=== PATIENT | female | born 1945 | race American Indian/Alaskan Native ===

== ENCOUNTER 2018-04-19 04:10 | Emergency (ER) | payer MEDICARE ==
--- NOTE | 2018-04-19 04:45 | C.PDOC ---
History Of Present Illness 72y/o female whose past medical history includes hypertension, pancreatic cysts, and kidney cancer, presents to the ED for evaluation of muscle spasms for one day. Patient states the spasms are located on her left and right side, mid back, and she feels like her entire back goes into spasm every time she moves. She reports history of similar symptoms around six months ago, and states she was given Oxycontin for the pain by her PMD. Patient is visiting [place] to see her son and had an appointment with pancreatic specialist while here. Patient reports her PMD is in [place], and is returning home today. She denies fever, chills, recent trauma/injuries, SOB, chest pain, headache, dizziness, neck pain, saddle anesthesia, bowel/bladder incontinence, numbness, weakness, paresthesia, abdominal pain, N/V, cough, or any other associated complaints. Time Seen by Provider: 04/19/18 04:31 Chief Complaint (Nursing): Back Pain History Per: Patient History/Exam Limitations: no limitations Onset/Duration Of Symptoms: Hrs Current Symptoms Are (Timing): Still Present Quality Of Discomfort: "Pain" Past Medical History Reviewed: Historical Data, Nursing Documentation, Vital Signs Vital Signs: Last Vital Signs Temp 97.6 F 04/19/18 04:19 Pulse 54 L 04/19/18 04:19 Resp 20 04/19/18 04:19 BP 138/79 04/19/18 04:19 Pulse Ox 96 04/19/18 04:19 - Medical History PMH: HTN Surgical History: No Surg Hx Family History: States: Unknown Family Hx - Social History Hx Alcohol Use: No Hx Substance Use: No Review Of Systems Constitutional: Negative for: Fever, Chills Eyes: Negative for: Vision Change ENT: Negative for: Nose Congestion, Throat Pain Cardiovascular: Negative for: Chest Pain, Palpitations, Light Headedness Respiratory: Negative for: Cough, Shortness of Breath Gastrointestinal: Negative for: Nausea, Vomiting, Abdominal Pain, Diarrhea, Constipation Genitourinary: Negative for: Dysuria, Frequency, Vaginal Discharge, Vaginal Bleeding Musculoskeletal: Positive for: Back Pain, Other (left-sided muscle spasms, atraumatic ) Skin: Negative for: Rash, Bruising Neurological: Negative for: Weakness, Numbness, Altered Mental Status, Headache, Dizziness Physical Exam - Physical Exam Appears: Well, Non-toxic, No Acute Distress Skin: Normal Color, Warm, Dry Head: Atraumatic, Normacephalic Eye(s): bilateral: Normal Inspection, PERRL, EOMI Nose: Normal Oral Mucosa: Moist Neck: Normal ROM, No Midline Cervical Tenderness, No Paracervical Tenderness, Supple Chest: Symmetrical, No Deformity, No Tenderness Cardiovascular: Rhythm Regular, No Murmur Respiratory: Normal Breath Sounds, No Rales, No Rhonchi, No Wheezing Gastrointestinal/Abdominal: Soft, No Tenderness Back: Normal Inspection, No CVA Tenderness, No Vertebral Tenderness, No Decreased ROM, Muscle Spasm (left thoracic), Paraspinal Tenderness (left-sided, thoracic ) Extremity: Normal ROM, Capillary Refill (less than 2 seconds ) Extremity: Bilateral: Atraumatic, No Pedal Edema, Normal Color And Temperature, Normal ROM Pulses: Left Radial: Normal, Right Radial: Normal Neurological/Psych: Oriented x3, Normal Speech, Normal Cognition, Normal Motor, Normal Sensation Gait: Steady ED Course And Treatment O2 Sat by Pulse Oximetry: 96 (on RA ) Pulse Ox Interpretation: Normal Medical Decision Making Medical Decision Making: Progress: Tylenol PO, Percocet PO and Lidoderm patch given. Case discussed with ED attending Dr. Palacios, who recommends discharge home with Percocet until followup with PMD. Pt states that medrol dose packs have helped her pain in the past. Will discharge home with medrol dose pack and recommend followup with orthopedics and PMD. On reassessment, patient is resting comfortably, showing no signs of distress and reports an improvement in her pain. Patient is ambulatory in the ED with steady gait and is steady for discharge. Patient is advised to f/u with her PMD within 1-2 days for further evaluation. Diagnostic testing results and plan of care discussed with patient. Strict instructions given regarding prescription use, importance of followup, and signs/symptoms to return to ER including saddle anesthesia, bowel/bladder incontinence, urinary symptoms, or any other new/worsening symptoms. Pt verbalized understanding of discussion. Patient is A&Ox3, ambulating with steady gait, with vital signs stable for discharge. Disposition - Disposition Referrals: [facility] [Outside] Maria Alejandra Villalobos MD [Staff Provider] - Disposition: HOME/ ROUTINE Disposition Time: 06:40 Condition: IMPROVED Additional Instructions: Increase fluids Tylenol as needed for pain Lidoderm patches daily, 12 hours at a time Followup with primary doctor tomorrow Return to ER with any new/worsening symptoms Prescriptions: Methylprednisolone [Medrol Dose Pack (21 tabs)] 4 mg PO DAILY #21 mg oxyCODONE/Acetaminophen [Percocet 5/325 mg Tab] 1 ea PO Q6H #10 tab Instructions: Muscle Spasms (DC), Chronic Pain (DC) Forms: General Discharge Instructions, [facility] ([place]) - Clinical Impression Clinical Impression: Chronic back pain, Muscle spasm - PA / [employer] / Resident Statement MD/DO has reviewed & agrees with the documentation as recorded. - Scribe Statement The provider has reviewed the documentation as recorded by the Scribe (Almita Alvarez) All medical record entries made by the Scribe were at my direction and personally dictated by me. I have reviewed the chart and agree that the record accurately reflects my personal performance of the history, physical exam, medical decision making, and the department course for this patient. I have also personally directed, reviewed, and agree with the discharge instructions and disposition.
[2018-04-19] MEDS ORDERED: Lidocaine 5% Patch TD STA (04:53)
[2018-04-19] MEDS ORDERED: Lidocaine 5% Patch TD ONE (05:00)
[2018-04-19] MEDS ORDERED: Oxycodone/Acetaminophen 5/325 mg Tab PO STA (05:44)
[2018-04-19] MEDS ORDERED: Oxycodone/Acetaminophen 5/325 mg Tab ONE (05:56)
[2018-04-19 06:51] VITALS: BP 135/83; PULSE 96; RESP 18; TEMP 97.7
[2018-04-20 23:20] VITALS: O2SAT 96
== END 2018-04-19 06:51 | disposition home or self-care (01) ==
LOC: C.ER 04:10
DX: G89.29 Other chronic pain (principal); M54.9 Dorsalgia, unspecified; M62.830 Muscle spasm of back